=== PATIENT | male | born 1955 | race Caucasian/White ===

== ENCOUNTER 2020-08-10 12:55 | Emergency (ER) | payer MEDICARE, BC ==
[2020-08-10 13:01] VITALS: TEMP 97.6
--- NOTE | 2020-08-10 13:33 | ED ---
General Adult HPI - General Chief complaint: Urogenital Stated complaint: post op unable to urinate Time Seen by Provider: 08/10/20 13:13 Source: patient, RN notes reviewed, old records reviewed Mode of arrival: ambulatory Limitations: no limitations - History of Present Illness Initial comments: 65-year-old presents for suspected urinary retention. Patient has not had a normal urination since he left the hospital yesterday. He had wrist surgery. He is on opiates and has history of BPH. He has some lower abdominal discomfort and the sensation that he needs to urinate but has been unable to void. No fever chills. No vomiting. No other issues. - Related Data Allergies Allergy/AdvReac Type Severity Reaction Status Date / Time codeine AdvReac Nausea & Verified 08/10/20 13:00 Vomiting ibuprofen [From Motrin] AdvReac Nausea & Verified 08/10/20 13:00 Vomiting Review of Systems ROS Statement: Those systems with pertinent positive or pertinent negative responses have been documented in the HPI. ROS Other: All systems not noted in ROS Statement are negative. Past Medical History Past Medical History: Hyperlipidemia, Hypertension, Prostate Disorder Additional Past Surgical History / Comment(s): otrho surgery General Exam Limitations: no limitations General appearance: alert, anxious Head exam: Present: atraumatic, normocephalic Eye exam: Present: normal appearance, PERRL ENT exam: Present: normal exam Neck exam: Present: normal inspection. Absent: tenderness, meningismus Respiratory exam: Present: normal lung sounds bilaterally, respiratory distress Cardiovascular Exam: Present: normal rhythm, tachycardia GI/Abdominal exam: Present: soft. Absent: distended, tenderness, guarding Neurological exam: Present: alert, oriented X3, CN II-XII intact. Absent: motor sensory deficit Psychiatric exam: Present: anxious Skin exam: Present: warm, dry, intact. Absent: cyanosis, diaphoretic Course Vital Signs 08/10/20 12:57 Temperature 97.6 F Pulse Rate 108 H Respiratory 20 Rate Blood Pressure 157/76 O2 Sat by Pulse 97 Oximetry Medical Decision Making - Medical Decision Making Pham catheter placed by nurse, complete relief of patient's symptoms. Disposition Clinical Impression: Urinary retention Disposition: HOME SELF-CARE Condition: Fair Instructions (If sedation given, give patient instructions): Urinary Retention in Men (ED) Is patient prescribed a controlled substance at d/c from ED?: No Referrals: Nonstaff,Physician [Primary Care Provider] - 1-2 days Antonio Guzmán MD [STAFF PHYSICIAN] - 1-2 days Time of Disposition: 13:32
[2020-08-10 13:57] VITALS: BP 124/73; PULSE 85; RESP 18
== END 2020-08-10 13:57 | disposition home or self-care (01) ==
LOC: EC 12:55
DX: R33.9 Retention of urine, unspecified (principal); E78.5 Hyperlipidemia, unspecified; I10 Essential (primary) hypertension
CPT/HCPCS: 99283

== ENCOUNTER 2024-08-08 17:50 | Emergency (ER) | payer MEDICARE ==
--- NOTE | 2024-08-08 18:19 | ED ---
Eye Problem HPI - General Source: patient <Lilo Garcia - Last Filed: 08/08/24 18:18> - General Source: patient, RN notes reviewed Mode of arrival: ambulatory Limitations: no limitations <Lior Quinteros - Last Filed: 08/08/24 19:40> - General Stated complaint: L eye issue Time Seen by Provider: 08/08/24 18:18 - History of Present Illness Initial comments: Quick [id number] male presenting for left eye pain x 3 hours. States he was spraying for bugs outside and he believes he may have a foreign body in his eye as he has had irritation and redness. States he attempted to irrigate his eye with little relief. Denies vision changes. Last tetanus 2 years ago. (Lilo Garcia) 69-year-old male presents emergency department complaint of left eye pain. Patient states that he feels like symptoms in his eye states tried irrigated with no relief. Patient states that he just feels some s chest discomfort. (Lior Quinteros) - Related Data Allergies Allergy/AdvReac Type Severity Reaction Status Date / Time codeine AdvReac Nausea & Verified 08/10/20 13:00 Vomiting ibuprofen [From Motrin] AdvReac Nausea & Verified 08/10/20 13:00 Vomiting Review of Systems ROS Other: All systems not noted in ROS Statement are negative. <Lilo Garcia - Last Filed: 08/08/24 18:18> ROS Other: All systems not noted in ROS Statement are negative. <Lior Quinteros - Last Filed: 08/08/24 19:40> ROS Statement: Those systems with pertinent positive or pertinent negative responses have been documented in the HPI. Past Medical History Past Medical History: Hyperlipidemia, Hypertension, Prostate Disorder History of Any Multi-Drug Resistant Organisms: None Reported Additional Past Surgical History / Comment(s): otrho surgery Past Psychological History: No Psychological Hx Reported Smoking Status: Current every day smoker Past Alcohol Use History: Occasional Past Drug Use History: None Reported <Lilo Garcia - Last Filed: 08/08/24 18:18> General Exam <Lilo Garcia - Last Filed: 08/08/24 18:18> General appearance: alert, in no apparent distress Head exam: Present: atraumatic, normocephalic, normal inspection Eye exam: Present: PERRL, EOMI, conjunctival injection, other (Patient had relief with proparacaine, there is uptake in the 12 clock position with fluorescein and Mendoza lamp no foreign body noted). Absent: normal appearance, scleral icterus, periorbital swelling ENT exam: Present: normal exam, mucous membranes moist Neck exam: Present: normal inspection, full ROM. Absent: tenderness, meningismus, lymphadenopathy Respiratory exam: Present: normal lung sounds bilaterally. Absent: respiratory distress, wheezes, rales, rhonchi, stridor Cardiovascular Exam: Present: regular rate, normal rhythm, normal heart sounds. Absent: systolic murmur, diastolic murmur, rubs, gallop, clicks <Lior Quinteros M - Last Filed: 08/08/24 19:40> - General Exam Comments Initial Comments: Visual Physical Exam General: Well-appearing, nontoxic, no acute distress. Head: Normocephalic, atraumatic Eyes: PERRLA, EOMI ENT: Airway patent Chest: Nonlabored breathing Skin: No visual rash, normal skin tone Neuro: Alert and oriented 3 Musculoskeletal: No gross abnormalities (Lilo Garcia) Course Vital Signs 08/08/24 18:28 Temperature 97.9 F Pulse Rate 110 H Respiratory 20 Rate Blood Pressure 147/83 O2 Sat by Pulse 98 Oximetry Medical Decision Making <Lilo Garcia - Last Filed: 08/08/24 18:18> <Lior Quinteros - Last Filed: 08/08/24 19:40> - Medical Decision Making I completed the quick note portion of this chart signed Lilo Garcia PA-C (Lilo Garcia) Was pt. sent in by a medical professional or institution ([facility] Nunez, MECHANICAL METER TESTER, urgent care, hospital, or retirement...) When possible be specific @ -No Did you speak to anyone other than the patient for history (EMS, parent, family, police, friend...)? What history was obtained from this source @ -No Did you review nursing and triage notes (agree or disagree)? Why? @ -I reviewed and agree with nursing and triage notes Were old charts reviewed (outside hosp., previous admission, EMS record, old EKG, old radiological studies, urgent care reports/EKG's, retirement records)? Report findings @ -No old charts were reviewed Differential Diagnosis (chest pain, altered mental status, abdominal pain women, abdominal pain men, vaginal bleeding, weakness, fever, dyspnea, syncope, headache, dizziness, GI bleed, back pain, seizure, CVA, palpatations, mental health, musculoskeletal)? @ -Corneal abrasion, conjunctivitis, corneal foreign body EKG interpreted by me (3pts min.). @ -None X-rays interpreted by me (1pt min.). @ -None done CT interpreted by me (1pt min.). @ -None done U/S interpreted by me (1pt. min.). @ -None done What testing was considered but not performed or refused? (CT, X-rays, U/S, labs)? Why? @ -None What meds were considered but not given or refused? Why? @ -None Did you discuss the management of the patient with other professionals (professionals i.e. , PA, MECHANICAL METER TESTER, lab, RT, psych nurse, family welfare social work professor, supervisor blood donor recruiters, teacher, commercial escrow officer, protective services case worker)? Give summary @ -No Was smoking cessation discussed for >3mins.? @ -No Was critical care preformed (if so, how long)? @ -No Were there social determinants of health that impacted care today? How? (Homelessness, low income, unemployed, alcoholism, drug addiction, transportation, low edu. Level, literacy, decrease access to med. care, long term, r ehab)? @ -No Was there de-escalation of care discussed even if they declined (Discuss DNR or withdrawal of care, Hospice)? DNR status @ -No What co-morbidities impacted this encounter? (DM, HTN, Smoking, COPD, CAD, Cancer, CVA, ARF, Chemo, Hep., AIDS, mental health diagnosis, sleep apnea, morbid obesity)? @ -None Was patient admitted / discharged? Hospital course, mention meds given and route, prescriptions, significant lab abnormalities, going to OR and other pertinent info. @ -Discharge patient has corneal abrasion without evidence of foreign body currently. Patient's evidence of the patient start on Tobrex will follow-up with ophthalmology [place]. Undiagnosed new problem with uncertain prognosis? @ -No Drug Therapy requiring intensive monitoring for toxicity (Heparin, Nitro, Insulin, Cardizem)? @ -No Were any procedures done? @ -No Diagnosis/symptom? @ -Corneal abrasion Acute, or Chronic, or Acute on Chronic? @ -Acute Uncomplicated (without systemic symptoms) or Complicated (systemic symptoms)? @ -Uncomplicated Side effects of treatment? @ -No Exacerbation, Progression, or Severe Exacerbation? @ -No Poses a threat to life or bodily function? How? (Chest pain, [place], [place], pneumonia, PE, COPD, DKA, ARF, appy, cholecystitis, CVA, Diverticulitis, Homicidal, Suicidal, threat to staff... and all critical care pts) @ -No (Lior Quinteros) Disposition <Lilo Garcia - Last Filed: 08/08/24 18:18> Is patient prescribed a controlled substance at d/c from ED?: No Time of Disposition: 19:40 <Lior Quinteros - Last Filed: 08/08/24 19:40> Clinical Impression: Corneal abrasion, left Disposition: HOME SELF-CARE Condition: Stable Instructions (If sedation given, give patient instructions): Corneal Abrasion (ED) Additional Instructions: Tobrex eyedrops 1 drop every hour today, every 4 hours for the next 6 days. Please return to the Emergency Department if symptoms worsen or any other concerns. Referrals: Nonstaff,Physician [Primary Care Provider] - 1-2 days Jah Garza MD [STAFF PHYSICIAN] - 1-2 days
[2024-08-08] MEDS: PROPARACAINE 0.5% OPHTH DROPS 15 ML BTL LEFT EYE STA (19:30)
[2024-08-08] MEDS: FLUORESCEIN STRIPS 1 MG STRIP LEFT EYE ONE (19:30)
[2024-08-08] MEDS: TOBRAMYCIN 0.3% OPHTH DROPS 5 ML BTL LEFT EYE STA (19:55)
[2024-08-08 20:11] VITALS: BP 138/88; PULSE 91; RESP 18; TEMP 97.8
== END 2024-08-08 20:11 | disposition home or self-care (01) ==
LOC: EC 17:50
DX: S05.02XA Injury of conjunctiva and corneal abrasion without foreign body, left eye, initial encounter (principal); F17.200 Nicotine dependence, unspecified, uncomplicated; Z88.5 Allergy status to narcotic agent; Z88.6 Allergy status to analgesic agent; W45.8XXA Other foreign body or object entering through skin, initial encounter
CPT/HCPCS: 99282